=== PATIENT | male | born 1970 | race Hispanic/Latino ===

== ENCOUNTER 2018-04-11 06:00 | Day surgery (SDC) | payer OTHER ==
[2018-04-03 10:54] VITALS: BMI 32.8
[2018-04-11] MEDS ORDERED: Lidocaine/Epinephrine 1% 1:100000 10 ML IJ ONE (07:12)
[2018-04-11] MEDS ORDERED: Bupivacaine 0.25% 20 ML INJ IJ ONE (07:12)
[2018-04-11] MEDS ORDERED: ceFAZolin IV 1 gm in Dextrose 2 GM/100 ML BAG IVPB ONE (07:12)
[2018-04-11] MEDS ORDERED: Midazolam 2 MG/2 ML VIAL ONE (07:34)
[2018-04-11] MEDS ORDERED: Propofol 10 mg/ml Inj (20 ML) ONE (07:34)
--- NOTE | 2018-04-11 10:05 | PCM.SURG1 ---
Surgeon's Initial Post Op Note - Surgeon's Notes Surgeon: MD Parish Spragger: FLAKITA Blount Type of Anesthesia: General Endo Pre-Operative Diagnosis: Umbilical hernia. Abdominal Pain Operative Findings: Umbilical Hernia. Morbid Obesity Post-Operative Diagnosis: Umbilical hernia. Abdominal Pain Operation Performed: Robotic Umbilical Hernia repair with Mesh. Lap Bilateral TAP block placement Specimen/Specimens Removed: Umbilical hernia sac and content Estimated Blood Loss: EBL {In ML}: 10 Blood Products Given: N/A Drains Used: No Drains Post-Op Condition: Good Date of Surgery/Procedure: 04/11/18 Time of Surgery/Procedure: 10:05
[2018-04-11] MEDS ORDERED: HYDROmorphone 0.5 mg/0.5 ml ISec IVP PRN (10:08)
[2018-04-11] MEDS ORDERED: HYDROmorphone 0.5 mg/0.5 ml ISec ONE (10:43)
[2018-04-11] MEDS ORDERED: Lactated Ringer's 1,000 ML IV ONE (11:00)
[2018-04-11 11:34] VITALS: TEMP 97.7
[2018-04-11 11:52] VITALS: O2SAT 96
[2018-04-11 13:02] VITALS: BP 114/69; PULSE 84; RESP 18
== END 2018-04-11 13:10 | disposition home or self-care (01) ==
LOC: C.SDS 06:00
PROVIDERS: ATTEND Surgery Surgical Critical Care
DX: K42.9 Umbilical hernia without obstruction or gangrene (principal); E66.01 Morbid (severe) obesity due to excess calories; Z68.33 Body mass index [BMI] 33.0-33.9, adult
CPT/HCPCS: 49652; 64488; 88302; C1781; J0690; J1170; J2250; J2405; J2704; J3010; J7120